=== PATIENT | male | born 1960 | race Caucasian/White ===

== ENCOUNTER 2020-04-15 19:09 | Emergency (ER) | payer BC ==
[~2020-04-15] VITALS: Ht 177.8 cm; Wt 84.0 kg
[~2020-04-15 19:09] MED LIST: ALLEGRA-D 1212 HOUR PO; ASPIRIN LOW DOS81 MG PO; FLONASE NASAL50 MCG; FLUTICASONE50 MCG; NO HOME MEDS; PROMETHAZINE25 MG OR; TAM75CAP PO
[2020-04-15 19:41] LABS: HEMATOCRIT 48.2 % (39.0-50.0); HEMOGLOBIN 16.1 g/dl (14.0-18.0); IMMATURE GRANULOCYTES 0.3 % (0.0-5.0); MEAN CELL VOLUME 92.5 fL CALC (80.0-100.0); MEAN CORPUSCULAR HGB 30.9 pG CALC (26.0-32.0); MEAN CORPUSCULAR HGB CONC 33.4 g/dL CAL (32.0-36.0); NEUT# 6.75 thou/uL (1.82-7.42); RED BLOOD COUNT 5.21 mill/uL (4.70-6.10); RED CELL DISTRI WIDTH 12.8 % (11.5-15.5)
[2020-04-15 20:11] LABS: ALBUMIN 4.6 g/dL (3.2-5.0); ALKALINE PHOSPHATASE 76 u/l (38-126); ANION GAP 12 (6-22 (CALC)); BUN 22 mg/dL (8-23); BUN/CREATININE RATIO 16 (12-20 (CALC)); CARBON DIOXIDE 25 mmol/l (22-30); CHLORIDE 107 mmol/l (95-108); CREATININE 1.4 mg/dL (0.7-1.3); GFR 52 ML/MIN (>=60 (CALC)); GFR FOR AFR.AMER. > 60 ML/MIN (>=60 (CALC)); LIPASE 336 u/l (23-300); POTASSIUM 4.3 mmol/l (3.5-5.1); SGOT/AST 54 u/l (19-48); SODIUM 139 mmol/l (137-146); TOTAL PROTEIN 7.4 g/dL (6.3-8.2)
[2020-04-15] MEDS ORDERED: KEFLEX500 M1 PO (20:34)
[2020-04-15 21:00] VITALS: BP 137/65
== END 2020-04-15 21:00 | disposition home or self-care (01) | DRG 694 ==
LOC: ED 19:09
DX: N13.2 Hydronephrosis with renal and ureteral calculous obstruction (principal)